=== PATIENT | male | born 2000 | race American Indian/Alaskan Native ===

== ENCOUNTER 2021-06-26 06:15 | Emergency (ER) | payer BC ==
[~2021-06-26] VITALS: Ht 172.7 cm; Wt 118.8 kg
[2021-06-26 07:17] LABS: PLATELET COUNT 209 K/uL (142-355)
[2021-06-26 07:21] LABS: POTASSIUM 3.5 mmol/L (3.6-5.2)
[2021-06-26 09:27] VITALS: BP 124/76; TEMP 98.2
== END 2021-06-26 09:29 | disposition home or self-care (01) ==
LOC: ED 06:15
PROVIDERS: Emergency Medicine
DX: R10.31 Right lower quadrant pain (principal)
CPT/HCPCS: 36415; 80053; 83690; 85027; 96360; 96365; 96375; 99284; J0696; J2405; J3490